=== PATIENT | male | born 1970 | race African-American/Black ===

== ENCOUNTER 2019-04-12 14:45 | Inpatient (IN) | payer OTHER ==
[~2019-04-12] VITALS: Ht 172.7 cm; Wt 154.2 kg
[2019-04-12 14:45] VITALS: BP 123/95
--- NOTE | 2019-04-12 14:45 | NUR ---
TO BED # 08 AMBULATORY
--- NOTE | 2019-04-12 15:00 | NUR ---
PT BIB SLEF WITH C/O CHEST TIGHTNESS SINCE LAST THREE ABD CANT BREATH, FOR 3 DAYS, WITH 1+ PITTING EDEMA ON HIS BOTH LEGS, HAVE SOB WHILE WALKING AND DOING HIS ADLS SINCE THREE DAYS. HAS RT SIDE LOWER BACK PAIN 5/10 AT THIS TIME. PT AAOX4. ER MD AT THE BEDSIDE FOR PT JEFFREY.
--- NOTE | 2019-04-12 15:01 | NUR ---
EMT TECH AT THE BEDSIDE.
--- NOTE | 2019-04-12 15:40 | NUR ---
autobody technician at bedside.
[2019-04-12 15:41] LABS: BASOPHILS # (AUTO) 0.1 K/uL (0.00-0.22); BASOPHILS % (AUTO) 0.7 % (0.0-2.0); EOSINOPHILS # (AUTO) 0.1 K/uL (0-0.4); EOSINOPHILS % (AUTO) 0.9 % (0.0-4.0); HEMATOCRIT 42.8 % (36-52); HEMOGLOBIN 13.9 g/dL (12.0-18.0); LYMPHOCYTES # (AUTO) 2.6 K/uL (2.0-11.5); LYMPHOCYTES % (AUTO) 35.6 % (20.5-51.1); MEAN CORPUSCULAR HEMOGLOBIN 28 pg (27-31); MEAN CORPUSCULAR HGB CONC 33 g/dL (33-37); MEAN CORPUSCULAR VOLUME 84.8 fL (80-94); MONOCYTES # (AUTO) 0.6 K/uL (0.8-1.0); NEUTROPHILS # (AUTO) 3.9 K/uL (1.8-7.7); NEUTROPHILS % (AUTO) 53.8 % (42.2-75.2); PLATELET COUNT (AUTO) 228 K/uL (140-450); RED BLOOD CELL COUNT(AUTO) 5.05 MIL/uL (4.20-6.10); RED CELL DISTRIBUTION WIDTH 16.1 % (11.6-13.7); WHITE BLOOD COUNT (AUTO) 7.2 K/uL (4.8-10.8)
[2019-04-12 15:52] LABS: ANION GAP 14.3 (8-16); CARBON DIOXIDE 25.8 mmol/L (21-32); CREATININE 1.3 mg/dL (0.7-1.3); POTASSIUM 4.1 mmol/L (3.5-5.1)
[2019-04-12 15:59] LABS: TOTAL BILIRUBIN 1.3 mg/dL (0.0-1.0)
--- NOTE | 2019-04-12 16:16 | NUR ---
Dr. Keller evaluating patient at bedside.
[2019-04-12] MEDS ORDERED: NACL 0.9% 1,000 ML IV ONE (16:20)
[2019-04-12] MEDS ORDERED: VERAPAMIL 5 MG/2 ML VIAL IVP ONE (16:30)
--- NOTE | 2019-04-12 17:30 | NUR ---
PT RESTING COMFORTABLY IN HIS BED, DEBNIES ANY CHEST PAIN. VS STABLE , FAMILY AT THE BEDSIDE. PENDING ADMIT.
[2019-04-12 19:10] VITALS: BP 128/98
--- NOTE | 2019-04-12 19:10 | NUR ---
Patient will be admitted to care of . Admited to TELEMETRY. Will go to room 125 A. [facility] list completed. Report tO SUSAN RUANO. Addendum: 04/12/19 at 1939 by [facility] PT VSS AT TRANSFER
--- NOTE | 2019-04-12 19:10 | NUR ---
RECEIVED REPORT FROM ED NURSE FOR PATIENT'S CONTINUITY OF CARE. PATIENT IS ALERT, AWAKE, ORIENTED X 4. VITAL SIGNS ARE FOLLOWS: BP 128/98, P 86, T 98.3, O2 SAT 99%, DENIES PAIN AT THIS TIME. PATIENT IS ON OXYGEN 2L NC. HAS A 20G IV ON LEFT HAND. SKIN IS INTACT, HAS A +1 PITTING EDEMA ON BILATERAL LOWER EXTREMITY. PATIENT IS IN STABLE CONDITION. WILL MONITOR PATIENT THROUGHOUT SHIFT.
[2019-04-12 20:00] VITALS: BP_SYST 128; BP_SYST 146; BP_DIAS 80; BP_DIAS 98
--- NOTE | 2019-04-12 22:02 | NUR ---
PAGED DR. LUCERO FOR FURTHER ORDERS. MARY CAMERON EDGING SUPERVISOR. CALLED BACK AND ORDERED THE PT TO BE TRANSFERRED TO [facility] FOR HIGHER LEVEL OF CARE FOR POSSIBLE CARDIAC CATH.
--- NOTE | 2019-04-12 22:10 | NUR ---
DR. HERNANDEZ WAS PAGED AGAIN. CALLED BACK AND SAID HE WILL BE THE ACCEPTING DOCTOR IN [facility].
[2019-04-12] MEDS ORDERED: hePARIN / DEXT 5% PREMIX 250 ML IV SCH (22:35)
[2019-04-12] MEDS ORDERED: HEPARIN PER PHARMACY MC PRN (22:35)
--- NOTE | 2019-04-12 22:35 | NUR ---
TALKED TO DR. HERNANDEZ AND HE SAID TO START HEPARIN DRIP PER PHARMACY.
--- NOTE | 2019-04-12 22:55 | NUR ---
CALLED [facility] TO F/U THE RESULT OF PT'S TRANSFER REQUEST.LEFT MESSAGE FOR [facility].
--- NOTE | 2019-04-12 23:00 | NUR ---
CALLED [facility] AND TALKED WITH DANN ROGERCOLOR SPRAYER.SHE SAID THEY DON'T HAVE BED NOW BUT SHE WILL FAX AGREEMENT FORM FOR ME TO COMPLETE AND FAX IT BACK W/PT'S FACE SHEET AND MEDICAL INFORMATION.
--- NOTE | 2019-04-12 23:10 | NUR ---
MARINO, [facility] CODING TECHNICIAN CALLED AND SAID THAT THEY STILL HAVE TO WORK WITH THE PT'S INSURANCE TO GET AN REFERENCE NUMBER. WILL BE IN CONTACT ANYTIME FOR ANY PROGRESS .
[2019-04-12 23:44] LABS: PROTHROMBIN TIME 11.4 secs (10.8-13.4)
--- NOTE | 2019-04-12 23:45 | NUR ---
FAXED ALL INFORMATIONS THAT [facility] NEEDS.
--- NOTE | 2019-04-13 | NUR ---
LAB CALLED FOR TROPONIN LEVEL RESULT 1.979, THE LEVEL IS TRENDING DOWN. PT TO START WITH HEPARIN DRIP.
--- NOTE | 2019-04-13 00:18 | NUR ---
HEPARIN BOLUS 4000 UNITS IVP GIVEN TO PT PRIOR TO STARTING THE HEPARIN DRIP PER PROTOCOL.
--- NOTE | 2019-04-13 00:20 | NUR ---
EXPLAINED TO PT THE NEED FOR HEPARIN DRIP . AND PT VERBALIZED UNDERSTANDING. AT 0020 HEPARIN DRIP STARTED AFTER SUSAN PINO CHARGE VERIFIED.
--- NOTE | 2019-04-13 00:30 | NUR ---
PT IS ASLEEP. NO S/S OF ANY DISCOMFORT NOR PAIN NOTED. WITH CONTINUOS O22L/NC.
[2019-04-13] MEDS: hePARIN / DEXT 5% PREMIX 250 ML IV SCH ×2 (01:18→09:24)
--- NOTE | 2019-04-13 02:25 | NUR ---
CALLED MARINO ,SCIENTIFIC SPECIALIST OF [facility] TO F/U THE TRANSFER TO THEIR FACILITY. HE SAID HE IS STILL WORKING ON IT. WILL CALL SOON HE ALREADY GOT THE AUTHORIZATION FROM THE INSURANCE.
--- NOTE | 2019-04-13 02:47 | NUR ---
MARINO, [facility] RN INFORMATION TECHNOLOGY INTERNSHIP JUST CALLED AND SAID THERE IS POSSIBILITY TO GET THE AUTHORIZATION FROM INSURANCE BUT THEY CAN'T GET THE PT NOT UNTIL AFTER 0800 TODAY DUE TO SHORT STAFF.
--- NOTE | 2019-04-13 04:00 | NUR ---
VITAL SIGNS TAKEN AND CHARTED. PATIENT LYING DOWN, ASLEEP. VITAL SIGNS TAKEN AND CHARTED. PATIENT DENIES ANY PAIN. WILL CONTINUE TO MONITOR PATIENT.
[2019-04-13 04:18] VITALS: BP 120/90
--- NOTE | 2019-04-13 05:30 | NUR ---
OMAIRARN HS UPDATED DR. HERNANDEZ ABOUT PT TRANSFER THAT [facility] HAS THE POSSIBILITY TO ACCEPT PT BUT NOT UNTIL AFTER 0800 AM. HE IS AWARE OF THE PT ON HEPARIN DRIP AT 1000 UNITS /HR. TROPONIN 1.979 . NO SOB NOR CHEST PAIN NOTED DURING THE NIGHT.
--- NOTE | 2019-04-13 07:05 | NUR ---
ENDORSED PATIENT TO AM SHIFT NURSE FOR CONTINUITY OF CARE. PATIENT IS IN STABLE CONDITION. DR. HERNANDEZ AWARE REGARDING POSSIBLE TRANSFER TO [facility] AFTER 0800 TODAY.
--- NOTE | 2019-04-13 07:06 | NUR ---
RECEIVED REPORT FROM CHAIN SAW MECHANIC NURSE. PATIENT SITTING IN BED SLEEPING, AROUSABLE BY VOICE. NO DISTRESS NOTED. DENIES ANY PAIN, NOR ANY CHEST PAIN AT THIS TIME. AAOX4, CALM, COOPERATIVE, SKIN COLOR APPROPRIATE TO ETHNICITY, WARM TO TOUCH. SKIN INTACT. RESPIRATIONS EVEN, UNLABORED, ON O2 2L/MIN VIA NC. ABDOMEN SOFT, OBESE. IV SITE INTACT, PATENT, ON HEPARIN DRIP PER PROTOCOL. REVIEWED PLAN OF CARE WITH PATIENT ON POSSIBLE TRANSFER TO [facility] TODAY FOR HIGHER LEVEL OF CARE. PATIENT VERBALIZED UNDERSTANDING. SAFETY MEASURES IN PLACE, CALL LIGHT WITHIN REACH. WILL CONTINUE TO MONITOR.
[2019-04-13 08:00] VITALS: BP 136/96
--- NOTE | 2019-04-13 08:20 | NUR ---
CALLED [facility] CABLE PULLER, OMAIRA, TO FOLLOW-UP ON PATIENT'S TRANSFER FOR HIGHER LEVEL OF CARE. PER OMAIRA, SHE IS GOING TO ASK DR. NATHAN ON WHICH COMMERCIAL CREDIT PORTFOLIO MANAGER HE WANTS THE PATIENT TO SEE AT [facility] AND WILL RUN INSURANCE CHECK. OMAIRA TO CALL [facility] BACK IN 30 MINUTES FOR FOLLOW-UP. WILL CONTINUE TO MONITOR.
--- NOTE | 2019-04-13 08:30 | NUR ---
PATIENT HAS BEEN SCREENED AND CATEGORIZED HIGH NUTRITION RISK. PATIENT WILL BE SEEN WITHIN 1-2 DAYS OF ADMISSION. 04/13/19-04/14/[address]
--- NOTE | 2019-04-13 08:35 | NUR ---
NEW ORDER TO TRANSFER PT TO [facility] FOR HIGHER LEVEL OF CARE AND POSSIBLE CARDIAC CATH, CALLED CHERYL [facility] [phone] , NOTIFIED HER OF NEW ORDER.
--- NOTE | 2019-04-13 08:49 | NUR ---
CALLED [facility] CARDIAC CATH [phone] SPOKE TO OMAIRA CARDIAC CATH COORDINATOR, SHE SAID THAT THIS PT IS NOT ON THEIR LIST FOR TODAY. WILL CALL FORGING MACHINE OPERATOR AT [facility].
--- NOTE | 2019-04-13 09:00 | NUR ---
OMAIRA, GOLF TOURNAMENT CONSULTANT FROM [place] CALLED BACK. GAVE BED #333-B THAT PATIENT WILL BE GOING TO AND NUMBER TO CALL FOR REPORT [phone]. PER OMAIRA, SHE STILL NEEDS TO GET A HOLD OF DR. ORONA OR DR. LUCERO TO ASK WHO THE ACCEPTING CAR RETARDER OPERATOR WILL BE. SHE WILL CALL BACK WHEN SHE FINDS OUT. WILL CONTINUE TO MONITOR.
--- NOTE | 2019-04-13 09:05 | NUR ---
[facility]ERYL [facility] CALLED BACK WITH TRANSPORTATION AUTHORIZATION [id number].
--- NOTE | 2019-04-13 09:15 | NUR ---
CALLED AND SPOKE TO SUSAN GONZALEZ TAKING CARE OF PATIENT, PER LISA, HE ALREADY SPOKE TO OMAIRA ROGERNETWORK STRATEGIST AT [facility] AND AWARE OF THIS TRANSFER AND LOOKING FOR ADMITTING MD AND ROOM, WILL FOLLOW UP.
--- NOTE | 2019-04-13 09:30 | NUR ---
PTT: 29.2, HEPARIN DRIP ADJUSTED PER PROTOCOL.
--- NOTE | 2019-04-13 09:57 | NUR ---
PAGED DR. PEPE REGARDING PATIENT'S TRANSFER TO [facility] AND IF HE WANTED A POST SPLITTER CONSULT. PER DR. PEPE, NO CARDIO CONSULT NEEDED HERE LONG PATIENT HAS ACCEPTING MD AT [facility].
--- NOTE | 2019-04-13 10:19 | NUR ---
CALLED [facility] SPOKE TO OMAIRA ENGINEERING PROGRAM MANAGER [phone], SHE SAID THAT ACCEPTING MD AT [facility] IS DR HORNE RESPIRATORY MEDICINE PHYSICIAN FOR DR ORONA, AND DR ROJAS IS THE BASKET ASSEMBLER.
--- NOTE | 2019-04-13 10:22 | NUR ---
[facility]O PINK AWARE AND SUSAN GONZALEZ NOTIFIED OF THE TRANSFER.
--- NOTE | 2019-04-13 10:28 | NUR ---
CALLED [facility] SPOKE TO IVY [phone] AND ARRANGED TRANSPORTATION FOR PICK AT 1130 AM, SUSAN GONZALEZ MADE AWARE.
[2019-04-13] MEDS ORDERED: CARV6.252 PO (10:43)
[2019-04-13] MEDS ORDERED: LISI10TA11 PO (10:44)
--- NOTE | 2019-04-13 10:50 | NUR ---
[facility] CALLED, [facility] AUTH IS [id number], CALLED AUTH TO OMAIRA ROGERFINAL EXPENSE AGENT AT [facility].
--- NOTE | 2019-04-13 11:05 | NUR ---
CALLED [facility] [phone] AND GAVE REPORT TO SUSAN JAVIER REGARDING PATIENT TRANSFER FOR HIGHER LEVEL OF CARE. ANSWERED ALL OF [facility]'S QUESTIONS REGARDING TRANSFER AND NOTIFIED HER OF [facility] TRANSPORT PICKUP TIME OF 1130. [facility] TO AWAIT FOR PATIENT'S ARRIVAL. WILL CONTINUE TO MONITOR.
--- NOTE | 2019-04-13 11:07 | NUR ---
INSTRUCTIONS REGARDING TRANSFER TO [facility] PROVIDED TO PATIENT IN PREFERRED LANGUAGE OF [place]. ANSWERED ALL OF PATIENT'S QUESTIONS REGARDING TRANSFER. PATIENT VERBALIZED COMPLETE UNDERSTANDING. WILL CONTINUE TO MONITOR.
--- NOTE | 2019-04-13 11:39 | NUR ---
[facility]ORT CALLED AND SAID THEY WILL BE DELAYED 30MIN TO 1 HOUR IN PICKUP TIME DUE TO MULTIPLE 911 CALLS. WILL CONTINUE TO MONITOR.
--- NOTE | 2019-04-13 12:40 | NUR ---
[facility] ON UNIT READY TO TAKE PATIENT TO [facility]. ID BANDS REMOVED. ALL BELONGINGS WITH PATIENT. REPORT GIVEN TO [facility]SPORT. PATIENT TRANSFERRED TO [facility] AT THIS TIME VIA [facility]ORT IN STABLE CONDITION.
[2019-04-14] MEDS ORDERED: LISINOPRIL 10 MG TAB PO SCH (09:00)
[2019-04-14] MEDS ORDERED: CARVEDILOL 6.25 MG TAB PO SCH (09:00)
== END 2019-04-13 12:40 | disposition short-term general hospital (02) | DRG 190 ==
LOC: MED 14:45 → MTU 18:43 → MMU 19:05
PROVIDERS: ADMIT Internal Medicine Pulmonary Disease; ATTEND Internal Medicine Pulmonary Disease
DX: I21.4 Non-ST elevation (NSTEMI) myocardial infarction (principal); I11.0 Hypertensive heart disease with heart failure; I50.9 Heart failure, unspecified; E66.9 Obesity, unspecified; I48.2 Chronic atrial fibrillation; Z87.891 Personal history of nicotine dependence; Z91.19 Patient's noncompliance with other medical treatment and regimen; Z68.43 Body mass index [BMI] 50.0-59.9, adult
CPT/HCPCS: 36415; 71045; 80053; 83880; 84484; 85025; 85610; 85730; 87081; 93005; 96374; 99285; J1644; J3490